=== PATIENT | male | born 2000 | race Caucasian/White ===

== ENCOUNTER 2020-08-19 19:46 | Observation (INO) | payer BC, OTHER ==
[2020-08-19] MEDS ORDERED: ACETAMINOPHEN 500 MG TABLET (FP) PO ONE (20:30)
[2020-08-19] MEDS ORDERED: DIPHTH,PERTUSS(ACELL),TET 0.5 ML DISP.SYRIN IM ONE ×2 (20:32→20:33)
[2020-08-19] MEDS ORDERED: ACETAMINOPHEN 325 MG TABLET (FP) ONE (20:33)
[2020-08-19] MEDS ORDERED: morphine CARPU-JECT 2 MG/1 ML DISP.SYRIN IM ONE (22:20)
[2020-08-19] MEDS ORDERED: morphine SULFATE 4 MG/ML VIAL ONE (22:32)
[2020-08-19] MEDS ORDERED: morphine CARPU-JECT 4 MG/1 ML DISP.SYRIN IVPUSH ONE (22:35)
[2020-08-19] MEDS ORDERED: MIDAZOLAM HCL 2 MG/2 ML SINGLE DOSE VIAL IVPUSH ONE (23:02)
[2020-08-19] MEDS ORDERED: MIDAZOLAM HCL 5 MG/1 ML Single Dose Vial IVPUSH ONE (23:07)
[2020-08-19] MEDS ORDERED: MIDAZOLAM HCL 2 MG/2 ML SINGLE DOSE VIAL ONE (23:13)
[2020-08-19] MEDS ORDERED: KETAMINE HCL 200 MG/20 ML VIAL ONE (23:31)
[2020-08-19] MEDS ORDERED: PROPOFOL 20 ML ONE (23:31)
[2020-08-19] MEDS ORDERED: KETAMINE HCL 200 MG/20 ML VIAL IVPUSH ONE (23:46)
[2020-08-19] MEDS ORDERED: PROPOFOL 200 MG/20 ML VIAL IVPUSH ONE (23:46)
[2020-08-20 02:36] LABS: BASO % 0.5 % (0-2.0); EOS % 0.2 % (0-4.5); HEMATOCRIT 39.7 % (35.4-49); HEMOGLOBIN 13.5 GM/dL (11.7-16.9); MCH 30.9 pg (25.7-33.7); MCHC 33.9 g/dl (32.0-35.9); MEAN PLT VOLUME 9.7 fl (7.5-11.1); MONO % 8.6 % (3.8-10.2); NEUT % 70.7 % (42.8-82.8); PLATELET COUNT 178 K/MM3 (134-434); RBC 4.37 M/mm3 (4.00-5.60); RDW 13.3 % (11.9-15.9); WHITE BLOOD COUNT 13.2 K/mm3 (4.0-10.0)
[2020-08-20] MEDS ORDERED: ACETAMINOPHEN 325 MG TABLET (FP) PO PRN (02:44)
[2020-08-20] MEDS ORDERED: SODIUM CHLORIDE 1,000 ML IV SCH (02:45)
[2020-08-20 02:55] LABS: CHLORIDE 111 mmol/L (98-107); SODIUM 142 mmol/L (136-145)
[2020-08-20 02:57] LABS: ALBUMIN 3.9 g/dl (3.4-5.0); ANION GAP 5 MMOL/L (8-16); BLOOD UREA NITROGEN 15.6 mg/dL (7-18); CO2 26 mmol/L (21-32); GLUCOSE,RANDOM 104 mg/dL (74-106)
[2020-08-20 03:00] LABS: SGOT/AST 26 U/L (15-37); SGPT/ALT 18 U/L (13-61)
[2020-08-20 03:01] LABS: BILIRUBIN,TOTAL 1.2 mg/dL (0.2-1); TOT PROT 6.9 g/dl (6.4-8.2)
[2020-08-20 03:03] LABS: ALK PHOS 62 U/L (45-117)
[2020-08-20 03:10] LABS: CREATININE 0.9 mg/dL (0.55-1.3)
[2020-08-20 03:18] LABS: EPI CELLS 9 /uL (0-25.1); HYALINE CASTS 3 /uL (0-3.1); URINE APPEARANCE CLOUDY; URINE BACTERIA 38 /uL (0-1359); URINE BILIRUBIN NEGATIVE (NEGATIVE); URINE COLOR YELLOW; URINE GLUCOSE (UA) NEGATIVE (NEGATIVE); URINE KETONE TRACE (NEGATIVE); URINE LEUK ESTERASE 1+ (NEGATIVE); URINE NITRITE NEGATIVE (NEGATIVE); URINE PROTEIN TRACE (NEGATIVE); URINE RBC 11 /uL (0-23.9); URINE WBC 49 /uL (0-25.8)
[2020-08-20 06:57] VITALS: BMI 23.9
[2020-08-20 08:45] LABS: BASO % 0.4 % (0-2.0); EOS % 0.2 % (0-4.5); HEMATOCRIT 39.7 % (35.4-49); HEMOGLOBIN 13.3 GM/dL (11.7-16.9); LYMPH % 21.2 % (8-40); MCH 31.2 pg (25.7-33.7); MCHC 33.5 g/dl (32.0-35.9); MEAN PLT VOLUME 9.9 fl (7.5-11.1); MONO % 9.5 % (3.8-10.2); NEUT % 68.7 % (42.8-82.8); PLATELET COUNT 171 K/MM3 (134-434); RBC 4.27 M/mm3 (4.00-5.60); RDW 13.3 % (11.9-15.9); WHITE BLOOD COUNT 12.3 K/mm3 (4.0-10.0)
[2020-08-20 09:20] LABS: ALBUMIN 3.8 g/dl (3.4-5.0); BLOOD UREA NITROGEN 13.3 mg/dL (7-18); MAGNESIUM 1.8 mg/dL (1.8-2.4)
[2020-08-20 09:22] LABS: CREATININE 0.8 mg/dL (0.55-1.3); PHOSPHOROUS 3.8 mg/dL (2.5-4.9)
[2020-08-20 09:24] LABS: BILIRUBIN,TOTAL 1.5 mg/dL (0.2-1); TOT PROT 6.7 g/dl (6.4-8.2)
[2020-08-20] MEDS ORDERED: traMADol HCL 50 MG TABLET PO PRN (10:50)
[2020-08-20] MEDS ORDERED: IBUPROFEN 800 MG/8 ML IJ IVPB PRN (11:04)
[2020-08-20 13:18] VITALS: BP 141/78; PULSE 68; TEMP 98.6
== END 2020-08-20 14:32 | disposition home or self-care (01) ==
LOC: JER 19:46 → JERBED 08-20 02:03 → J8W 08-20 05:57
PROVIDERS: ADMIT Internal Medicine; ATTEND Nurse Practitioner Acute Care
PROC: 3E0234Z Introduction of Serum, Toxoid and Vaccine into Muscle, Percutaneous Approach (ICD-10-PCS; principal; 2020-08-20)
PROC: 3E033NZ Introduction of Analgesics, Hypnotics, Sedatives into Peripheral Vein, Percutaneous Approach (ICD-10-PCS; 2020-08-20)
PROC: 3E0337Z Introduction of Electrolytic and Water Balance Substance into Peripheral Vein, Percutaneous Approach (ICD-10-PCS; 2020-08-20)
PROC: 0QSQXZZ Reposition Right Toe Phalanx, External Approach (ICD-10-PCS; 2020-08-20)
PROC: 0QSQXZZ Reposition Right Toe Phalanx, External Approach (ICD-10-PCS; 2020-08-20)
PROC: 0QSQXZZ Reposition Right Toe Phalanx, External Approach (ICD-10-PCS; 2020-08-20)
PROC: 0QSQXZZ Reposition Right Toe Phalanx, External Approach (ICD-10-PCS; 2020-08-20)
DX: S92.501A Displaced unspecified fracture of right lesser toe(s), initial encounter for closed fracture (principal); S60.419A Abrasion of unspecified finger, initial encounter; S00.211A Abrasion of right eyelid and periocular area, initial encounter; S40.211A Abrasion of right shoulder, initial encounter; W05.2XXA Fall from non-moving motorized mobility scooter, initial encounter; Y93.89 Activity, other specified; Y92.410 Unspecified street and highway as the place of occurrence of the external cause; Z29.9 Encounter for prophylactic measures, unspecified; F17.210 Nicotine dependence, cigarettes, uncomplicated
CPT/HCPCS: 36415; 70450-TC; 71045-TC-FY; 72125-TC; 73610-TC-RT-FY; 73630-TC-RT-FY; 73660-TC-FY; 80053; 81003; 83735; 84100; 84484; 85025; 90715; 93005; 93010; 97116-GP; 99285-25; C9803; G0378; U0003; U0005